=== PATIENT | male | born 1955 | race Caucasian/White ===

== ENCOUNTER 2017-05-13 20:01 | Emergency (ER) | payer OTHER ==
[2017-05-13 20:10] VITALS: BP 177/90
--- NOTE | 2017-05-13 20:36 | ERNOTE ---
ENT HPI Date of Service: 05/13/17 Presenting Symptoms: other - Eye watering Time Seen by Provider: 05/13/17 20:14 Source: patient, family, RN notes reviewed Exam Limitations: no limitations - Immun/Allergies/Home Medications Immunizations: IMMUNIZATION HX Immunizations Up to Date Yes History of Influenza Vaccine Yes Hx Pneumococcal Vaccination No Allergies/Adverse Reactions: Allergies Allergy/AdvReac Type Severity Reaction Status Date / Time No Known Allergies Allergy Verified 12/09/14 11:15 Home Medications: HOME MEDICATIONS Amlodipine Besylate 10 mg PO DAILY 04/21/14 [Last Taken 04/21/14 09:00] Hydrochlorothiazide [Hydrodiuril] 25 mg PO DAILY 12/08/14 [Last Taken Unknown] Cyclobenzaprine HCl 12/21/14 [Last Taken Unknown] Propranolol HCl [Inderal] 10 mg PO DAILY 05/13/17 [Last Taken Unknown] predniSONE [Prednisone] 3 tab PO DAILY #21 tab 05/13/17 [Last Taken Unknown] valACYclovir HCL [Valtrex] 1,000 mg PO TID #21 tab 05/13/17 [Last Taken Unknown] - History of Present Illness Narrative: Marv is a 61-year-old male brought to the emergency department by his for eye watering. He thought he got something in his eye while he was working underneath of his car yesterday. His eyes were both red yesterday according to his . The right eye watering today. It is no longer red. She noticed that he had a headache above his right eye at some point during the day today and some aching around his right ear. When his came home from work she noticed that the right side of his face was drooping. He also reports having some difficulty while he was trying to eat some yogurt earlier today. ENT Location: Present: eye (R) Prearrival Treatment: Present: flushing eys Prior Treament: Denies: recently seen, similar symptoms before Review of Systems - Review of Systems Constitutional: Present: fatigue, decreased activity level. Absent: recent illness, fever, chills EYE: Absent: eye pain, vision changes ENT: Absent: ear pain, nose congestion, sore throat Respiratory: Absent: shortness of breath, cough Cardiology: Absent: chest pain, syncope Gastrointestinal/Abdominal: Absent: nausea, abdominal pain Genitourinary: Present: no symptoms reported Musculoskeletal: Present: muscle pain, neck pain. Absent: joint pain Skin: Absent: rash, lesions, lumps, change in color Neurological: Present: headache, tingling. Absent: dizziness/light-headedness, weakness, numbness Endocrine: Present: no symptoms reported Hematologic/Lymphatic: Present: no symptoms reported Psych: Present: no symptoms reported - Patient's Past Medical History Patient History - Medical: No pertinent hx Patient History - Cardiac/Respiratory: Hypertension Patient History - Cancer: No Hx of Cancer Patient History - Surgical Procedures: Appendectomy Patient History - Other: None - Social History Living Situations: spouse Abuse History: No History of abuse Psych History: No pertinent hx Smoking Status: Never smoker Have you smoked in the past 12 months: No Do you dip or chew tobacco: No Alcohol Use: none Drug Use: none - Immunizations Immunizations Up to Date: Yes Hx Pneumococcal Vaccination: No History of Influenza Vaccine: Yes Physical Exam - Physical Exam General Appearance: Present: wd/wn, alert, no apparent distress Head Exam: Present: normal inspection, no evidence of injury Eye Exam: Normal inspection: bilateral, PERRL: bilateral, EOMI: bilateral Ears, Nose, Throat: Present: normal pharynx. Absent: nasal congestion, sinus pain/drainage Neck: Present: supple, full range of motion, tender lateral - Right. Absent: lymphadenopathy (R), lymphadenopathy (L) Respiratory: Present: no respiratory distress, normal breath sounds, no accessory muscle use, lungs clear Cardiovascular/Chest: Present: regular rate, rhythm, no murmur, normal peripheral pulses Extremity Exam: Present: normal inspection, normal range of motion Neurological Exam: Present: alert, oriented, facial droop - Right, other - No motor or sensory deficits in extremities Skin Exam: Present: normal color, warm/dry ED Progress - Vital Signs Patient's Vital Signs:: I have reviewed the patient's vital signs. Vital Signs: Vital Signs 05/13/17 20:03 Temperature 36.9 C Pulse Rate 88 Respiratory 16 Rate Blood Pressure 177/90 O2 Sat by Pulse 99 Oximetry - Progress/Reassessment Chief Complaint: Eye Injury/Trauma Progress:: Unchanged Plan - Plan Plan: Prednisone and acyclovir given prior to d/c Departure Clinical Impression: Edwards's palsy - Departure Disposition: Home Follow Up Needed Condition: Stable Instructions: Edwards Palsy Additional Instructions: Use a moisturizing eye drop as needed - consider taping eye shut at night Referrals: Danilo Garza MD [Primary Care Provider] - Prescriptions: predniSONE [Prednisone] 3 tab PO DAILY #21 tab valACYclovir HCL [Valtrex] 1,000 mg PO TID #21 tab
[2017-05-13] MEDS ORDERED: predniSONE 20 MG TABLET ONE (20:37)
[2017-05-13] MEDS ORDERED: ACYCLOVIR 800 MG TABLET ONE (20:37)
[2017-05-13] MEDS: predniSONE 20 MG TABLET PO ONE (20:39)
[2017-05-13] MEDS: ACYCLOVIR 800 MG TABLET PO ONE (20:39)
== END 2017-05-13 20:41 | disposition home or self-care (01) ==
LOC: ER 20:01
DX: G51.0 Bell's palsy (principal)